=== PATIENT | male | born 1950 | race Caucasian/White ===

== ENCOUNTER 2019-08-19 13:51 | Inpatient (IN) | payer MEDICARE ==
[2019-08-19] MEDS ORDERED: Iopamidol-370 76% 500 ML 1 ML ONE (14:40)
--- NOTE | 2019-08-19 15:40 | RAD ---
ABDOMEN TWO VIEWS: HISTORY: Absent bowel movement x5 days. COMPARISON: None. FINDINGS: No evidence of pneumoperitoneum on the upright projection. Multiple markedly distended loops of small bowel. Paucity of gas in the colon. IMPRESSION: High-grade small bowel obstruction. Transcribed Date/Time: 08/19/2019 5:06 PM
[2019-08-19 16:33] LABS: Hemoglobin 15.7 g/dL (14.0-18.0); Mean Corpuscular HGB CONC 34.3 g/dL (32.0-36.0); Mean Corpuscular Hemoglobin 31.8 pg (27.0-31.0); Mean Corpuscular Volume 92.9 fL (78.0-98.0); Mean Platelet Volume 7.8 fL (7.4-10.4); Platelet Count 241 thou/uL (130-400); RBC Distribution Width 11.3 % (11.5-14.5); Red Blood Cell (RBC) Count 4.93 mill/uL (4.70-6.10); White Blood Cell (WBC) Count 12.7 thou/uL (4.8-10.8)
[2019-08-19 16:50] LABS: Band 23 % (5-11); Eosinophils 1 % (0-10); Lymphocytes 1 % (21-51); MDiff Complete? YES; Monocytes 9 % (0-10); Neutrophil 63 % (42-75); Platelet Morphology Comment Appears Adequate; Polychromasia SLIGHT = 2-3 cells (100X) (0-2/hpf); Reactive Lymphocytes 3 % (0-10)
[2019-08-19 16:59] LABS: Albumin 3.5 g/dL (3.4-4.8)
[2019-08-19 17:00] LABS: Chloride 94 mmol/L (98-107); Sodium 130 mmol/L (136-145)
[2019-08-19 17:01] LABS: Calcium 9.1 mg/dL (7.8-10.44); Glucose 99 mg/dL (80-115)
[2019-08-19 17:02] LABS: AST (SGOT) 19 U/L (5-34); Bilirubin, Total 1.4 mg/dL (0.2-1.2); Globulin 3.6 g/dL (2.4-3.5); Protein, Total 7.1 g/dL (5.8-8.1)
[2019-08-19 17:03] LABS: Anion Gap 21 mmol/L (10-20); Carbon Dioxide 19 mmol/L (23-31)
[2019-08-19 17:04] LABS: Alkaline Phosphatase 86 U/L (40-110)
[2019-08-19 17:05] LABS: Calc. Creatinine Clearance 0 mL/min (70-130); Estimated GFR-MDRD 83
[2019-08-19 17:06] LABS: BUN (Urea Nitrogen) 55 mg/dL (8.4-25.7)
[2019-08-19 17:07] LABS: ALT (SGPT) 12 U/L (8-55)
[2019-08-19 17:08] LABS: Lipase 39 U/L (8-78)
[2019-08-19] MEDS ORDERED: Morphine 4 MG/ML VIAL ONE (17:55)
[2019-08-19] MEDS ORDERED: Ondansetron PF 4 MG/2 ML Vial ONE (17:56)
[2019-08-19 18:16] LABS: Bacteria/HPF None Seen HPF (None Seen); Bilirubin Negative (Negative); Blood, Urine Negative (Negative); Clarity Clear (Clear); Glucose, Urine (Dipstick) Normal (Negative); Leukocyte Negative Leu/uL (Negative); Nitrite Negative (Negative); Protein, Urine (Dipstick) 30 mg/dL (Neg-Trace); RBC/HPF 0-3 HPF (0-3); Squamous Epithelial 0-3 HPF (0-3); Urobilinogen Normal mg/dL (Less than 2); WBC/HPF 0-3 HPF (0-3)
[2019-08-19] MEDS ORDERED: Ondansetron PF 4 MG/2 ML Vial IVP PRN (18:17)
[2019-08-19] MEDS ORDERED: hydrALAZINE 20 MG/ML VIAL SLOW IVP PRN (18:17)
--- NOTE | 2019-08-19 19:21 | RAD ---
ONE VIEW ABDOMEN: History: NT tube placement. Comparison: None. FINDINGS: Nasogastric tube termites in the left upper quadrant. Multiple distended air filled loops of small shahrzad wel are noted. IMPRESSION: Nasogastric tube as above. POS: PPP
[2019-08-19 20:16] VITALS: BMI 21.7
--- NOTE | 2019-08-19 20:24 | CT ---
ABDOMEN CT WITH CONTRAST PELVIC CT WITH CONTRAST: History: High grade small bowel obstruction. Lack of bowel movement for five days. FINDINGS: ABDOMEN CT: Chronic changes in the lung bases. Normal heart size. No significant pericardial fluid. The descendin g thoracic aorta and abdominal aorta have a normal caliber. There is atherosclerosis without evidence of periaortic fat stranding. Portal vein is patent. Gallbladder is unremarkable. The liver, spleen, pancreas, and adrenal glands have appropriate attenuation and enhancement. There is symmetric enhancement of the kidneys. Bilaterally, no obstructive uropathy. No gastrohepatic, retrocrural or periportal lymphadenopathy. Decreased visceral fat limits evaluation for inflammatory change. No mesenteric mass, lymphadenopathy , free air or free fluid. Limited evaluation of the alimentary canal by the absence of oral contrast. There are multiple markedly distended fluid filled loops of jejunum. Transition segment appears to be in the midabdomen (axial image 56, series 2 and coronal image 72, series 601). The distal ileal loop s are decompressed. Ileocecal junction is unremarkable. The appendix appears to be distended with fec al material and air, as well as debris within it. Based on the coronal images, the appendix measures 1 cm at its base. There may be an appendicolith at the base of the appendix. Scattered material in a nondistended, nondilated colon. There is mucosal thickening of the left hemicolon due to inadeq uate distention. There is evidence of descending colon and sigmoid colon diverticulosis, without evid ence of diverticulitis. PELVIC CT: Urinary bladder is grossly unremarkable. No pelvis mass, lymphadenopathy, free air or free fluid. Mil dly prominent prostate gland. There are no lytic or blastic lesions within the osseous structures. IMPRESSION: 1. High grade small bowel obstruction which appears to have a transition point in the midline of the lower abdomen. 2. Questionable prominent appendix with components of fluid and debris. Though there is still air in the appendix, appendicitis cannot be entirely excluded. Given what appears to be a possible appendico lith at the base of the appendix. The appendix measures approximately 1 cm proximally. 3. Extensive diverticulosis in the left hemicolon, without evidence of diverticulitis. 4. The results of study discussed with Alba Cleveland, 08-19-2019 at 6:59 p.m. Code CR POS: PPP
[2019-08-19] MEDS: Sodium Chloride 0.9% 1,000 ML IV SCH (21:14)
[2019-08-19] MEDS: Famotidine/PF 20 mg/2ml Vial SLOW IVP SCH (21:15)
[2019-08-19] MEDS: Enoxaparin Sodium 40 MG/0.4 ML SYRINGE SC SCH (21:17)
[2019-08-19] MEDS ORDERED: Mometasone/Formoterol 120 PUFF INHALER INH SCH (23:15)
[2019-08-19] MEDS: Morphine 2 MG/ML SYRINGE SLOW IVP PRN (23:34)
[2019-08-20] MEDS: Sodium Chloride 0.9% 1,000 ML IV SCH ×4 (02:46→23:02)
[2019-08-20] MEDS: Morphine 2 MG/ML SYRINGE SLOW IVP PRN ×3 (02:47→09:13)
[2019-08-20 05:11] LABS: #Eosinphils 0.1 thou/uL (0.0-0.7); #Lymphocytes 0.7 thou/uL (1.20-3.40); #Monocytes 1.4 thou/uL (0.11-0.59); #Neutrophils 10.1 thou/uL (1.40-6.50); %Basophils 0.1 % (0.0-1.0); %Eosinophils 0.5 % (0.0-10.0); %Lymphocytes 5.6 % (21.0-51.0); %Monocytes 11.1 % (0.0-10.0); %Neutrophils 82.6 % (42.0-75.0); Hemoglobin 12.8 g/dL (14.0-18.0); Mean Corpuscular HGB CONC 31.8 g/dL (32.0-36.0); Mean Corpuscular Hemoglobin 29.7 pg (27.0-31.0); Mean Corpuscular Volume 93.4 fL (78.0-98.0); Mean Platelet Volume 7.5 fL (7.4-10.4); Platelet Count 273 thou/uL (130-400); RBC Distribution Width 11.1 % (11.5-14.5); Red Blood Cell (RBC) Count 4.31 mill/uL (4.70-6.10); White Blood Cell (WBC) Count 12.3 thou/uL (4.8-10.8)
[2019-08-20 05:37] LABS: ALT (SGPT) 11 U/L (8-55); AST (SGOT) 18 U/L (5-34); Albumin 2.8 g/dL (3.4-4.8); Alkaline Phosphatase 78 U/L (40-110); Anion Gap 9 mmol/L (10-20); BUN (Urea Nitrogen) 31 mg/dL (8.4-25.7); Bilirubin, Total 1.4 mg/dL (0.2-1.2); Calc. Creatinine Clearance 89 mL/min (70-130); Calcium 7.9 mg/dL (7.8-10.44); Carbon Dioxide 26 mmol/L (23-31); Chloride 97 mmol/L (98-107); Estimated GFR-MDRD Greater than 90; Globulin 2.7 g/dL (2.4-3.5); Glucose 81 mg/dL (80-115); Potassium 3.5 mmol/L (3.5-5.1); Protein, Total 5.5 g/dL (5.8-8.1); Sodium 128 mmol/L (136-145)
[2019-08-20] MEDS ORDERED: Mometasone/Formoterol 120 PUFF INHALER INH SCH (06:30)
[2019-08-20] MEDS ORDERED: Meropenem 2 GM in Sodium Chloride 0.9% 100 ML IVPB SCH (07:30)
--- NOTE | 2019-08-20 07:57 | HP ---
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 He reports having had a colonoscopy 2 years ago at [facility]. He states it was completely clean. He has been evaluated today and noted to have abdominal distention. Plain abdominal x-ray suggested a bowel obstruction, although he has had no abdominal surgeries. CAT scan of the abdomen and pelvis reveals stool in his sigmoid colon, right colon, and distended small bowel loops. Review of his colonoscopy, Dr. Granado in 2016 reveals biopsies, ascending and transverse colon hyperplastic polyp. Otherwise, no significant findings. ALLERGIES: NONE. SOCIAL HISTORY: Tobacco, one half pack per day. Alcohol, rarely. MEDICATIONS: Inhalers, which he has not taken in some time. Otherwise, no medications. PAST SURGICAL HISTORY: Noncontributory. REVIEW OF SYSTEMS: Ten-point noncontributory. PHYSICAL EXAMINATION: VITAL SIGNS: 81, respiratory rate 16, and 120/60. HEAD, EARS, EYES, NOSE, AND THROAT: Unremarkable. LUNGS: Clear to auscultation. CARDIAC: Regular rate and rhythm without murmur or gallop. ABDOMEN: Soft, distended, and tympanitic. No peritoneal signs. Bowel sounds present. LABORATORY DATA: White count 12 and hemoglobin 15. Sodium 130, potassium 4, and carbon dioxide 19. CAT scan as above. ASSESSMENT AND PLAN: Abdominal distention of uncertain etiology. Await formal CAT scan reading. Place an NG tube. Resuscitate with IV fluids. Observe. Repeat abdominal x-rays in the morning. Further recommendations based on clinical course. Job ID: [id number]
--- NOTE | 2019-08-20 08:59 | PRG ---
DATE OF SERVICE: 08/20/2019 SUBJECTIVE: Jatin Munoz has not had any bowel movements or passed gas overnight. Temperature 98 degrees, heart rate 77, blood pressure 122/73. NG tube output is more than 300 overnight. White count is 12, hemoglobin 12 this morning. Sodium 128, potassium 3.5. BUN and creatinine are essentially normal. BUN improved from 55 to 31 this morning. Creatinine is normal at 0.71. Bilirubin is 1.4. OBJECTIVE: LUNGS: Clear to auscultation. No wheezing. CARDIAC: Regular rate and rhythm without murmur or gallop. ABDOMEN: Soft, quiet, distended, tympanitic. No guarding. LABORATORY DATA: Abdominal x-rays from this morning, 2-view, pending. ASSESSMENT AND PLAN: Small bowel obstruction. We would plan exploratory laparotomy for bowel obstruction in this patient, who has not had abdominal operations in the past. CAT scan is definitive for transition zone. He has had a colonoscopy in the last 2 years. He understands risks and benefits and consents. Job ID: [id number]
[2019-08-20] MEDS ORDERED: FLU VACC TS2019-20(65YR UP)/PF 180 MCG/0.5 ML SYRINGE IM ONE (09:00)
[2019-08-20] MEDS ORDERED: Prevnar 13-Val Conj/PF 0.5 ML SYRINGE IM ONE (09:00)
[2019-08-20] MEDS: Famotidine/PF 20 mg/2ml Vial SLOW IVP SCH ×2 (09:13→23:00)
[2019-08-20] MEDS: Morphine 4 MG/ML VIAL SLOW IVP PRN ×2 (11:13→15:34)
--- NOTE | 2019-08-20 11:55 | RAD ---
Acute abdominal series INDICATION: Small bowel obstruction follow-up COMPARISON: KUB dated 08/19/2019 FINDINGS: CHEST: LUNGS: There is mild right basilar atelectasis Cardiomediastinal silhouette: Normal. Pleural effusion or pneumothorax: There is a new small right and tiny left pleural effusion. Pneumoperitoneum: Negative. ABDOMEN: Bowel gas pattern: There is a gastric catheter projecting the region of the gastric cardia. There are dilated loops of small bowel within the central abdomen. There is minimal gas within the colon and rectum. Abnormal calcifications: There are scattered vascular calcifications within the abdomen and pelvis Osseous structures: No acute osseous abnormality is demonstrated. Additional findings: None. IMPRESSION: 1. Stable moderate to severe partial small bowel obstruction. 2. New small right and tiny left pleural effusion with mild right basilar atelectasis. 3. Gastric catheter
[2019-08-20] MEDS ORDERED: PROVENTIL INHALER 6.7 G (200 INHALATIONS) INH PRN (12:54)
[2019-08-20] MEDS ORDERED: Glycopyrrolate 0.2 MG/ML 5 ML SYRINGE ONE (13:06)
[2019-08-20] MEDS ORDERED: Rocuronium Bromide 10 MG/ML (10ML VIAL) ONE (13:06)
[2019-08-20] MEDS ORDERED: ePHEDrine/0.9% NaCl/PF SYRINGE 50 mg/10 ml ONE (13:06)
[2019-08-20] MEDS ORDERED: Lidocaine 1% PF 5 ML VIAL ONE (13:06)
[2019-08-20] MEDS ORDERED: PHENYLEPHRINE-NS 100 MCG/ML 10 ML SYRINGE ONE (13:06)
[2019-08-20] MEDS ORDERED: Dexamethasone 20 MG/5 ML VIAL ONE (13:06)
[2019-08-20] MEDS ORDERED: Succinylcholine Chloride 20 MG/ML 10 ml SYRINGE FS ONE (13:06)
[2019-08-20] MEDS ORDERED: Ondansetron PF 4 MG/2 ML Vial ONE (13:06)
[2019-08-20] MEDS ORDERED: PROPOFOL 200 MG/20 ML VIAL ONE (13:06)
[2019-08-20] MEDS: Ipratropium Bromide 2.5 ml Neb NEB SCH ×2 (18:33→23:50)
[2019-08-20] MEDS: Mometasone/Formoterol 120 PUFF INHALER INH SCH (18:43)
[2019-08-20] MEDS ORDERED: Fentanyl 100 MCG/2 ML VIAL ONE ×2 (20:03→21:37)
[2019-08-20] MEDS ORDERED: HYDROmorphone 0.5 MG/0.5 ML SYRINGE ONE ×2 (20:03→21:49)
[2019-08-20] MEDS ORDERED: Ondansetron HCl/PF 4 MG/2 ML Vial IVP PRN (20:07)
[2019-08-20] MEDS ORDERED: HYDROmorphone 2 MG/ML VIAL SLOW IVP PRN (20:45)
[2019-08-20] MEDS ORDERED: Promethazine HCl 25 MG/ML VIAL SLOW IVP PRN (20:45)
[2019-08-20] MEDS ORDERED: diphenhydrAMINE 50 MG/ML VIAL IM PRN (21:19)
[2019-08-20] MEDS ORDERED: diphenhydrAMINE 25 MG CAP PO PRN (21:19)
[2019-08-20] MEDS ORDERED: diphenhydrAMINE 50 MG/ML VIAL IVP PRN (21:19)
[2019-08-20] MEDS ORDERED: Zolpidem Tartrate 5 MG TAB PO PRN (21:19)
[2019-08-20] MEDS ORDERED: Promethazine HCl 25 MG/ML VIAL IM PRN (21:19)
[2019-08-20] MEDS ORDERED: Ketorolac Tromethamine 30 MG/ML VIAL IVP PRN (21:19)
[2019-08-20] MEDS ORDERED: Naloxone HCl 0.4 mg/ml Vial IV PRN (21:19)
[2019-08-20] MEDS ORDERED: Communication Order-Pharmacy FS SCH (21:30)
[2019-08-20] MEDS ORDERED: HYDROmorphone 2 MG/ML VIAL ONE (21:48)
[2019-08-20] MEDS: Enoxaparin Sodium 40 MG/0.4 ML SYRINGE SC SCH (23:00)
[2019-08-20] MEDS: NS 0.9% w/ 20 MEQ KCL 1,000 ML IV SCH (23:16)
[2019-08-20] MEDS: Piperacillin/Tazobactam 4.5 GM in Sodium Chloride 0.9% 100 ML IVPB SCH (23:17)
[2019-08-20] MEDS: Ketorolac Tromethamine 30 MG/ML VIAL IVP SCH (23:17)
--- NOTE | 2019-08-21 03:43 | OP ---
DATE OF PROCEDURE: 08/20/2019 PREOPERATIVE DIAGNOSIS: Small bowel obstruction. POSTOPERATIVE DIAGNOSES: Ruptured appendicitis with interloop abdominal abscess and a small bowel obstruction and umbilical hernia. PROCEDURES PERFORMED: Laparotomy, drainage of intraabdominal abscess, lysis of adhesions secondary to adhesions from ruptured appendicitis and abscess, appendectomy, abdominal washout, #19 Gold JAKE drain. INDICATIONS: The patient presented with acute onset of abdominal pain and distention for 2 to 3 days. He did not give any history of appendicitis. CAT scan did not reveal the abscess, but revealed a bowel obstruction with a transition zone. Findings at operation were as above. DESCRIPTION OF PROCEDURE: The patient was taken to the operating room, where under general anesthesia, abdomen was clipped of hair, prepared with ChloraPrep and draped in routine fashion. March catheter in place and left in place postoperatively. Midline incision was made, centered about the umbilicus, carried down to the skin and subcutaneous tissue. There was purulent material in the pelvis. One small bowel loops were taken down. There was an intraabdominal abscess with a ruptured appendicitis. Small bowel was freed and inflammatory oozing near the abscess. Small bowel was run from the ligament of Treitz to the cecum. Small bowel contents evacuated retrograde through the NG tube. Appendectomy undertaken dividing the mesoappendix with the LigaSure and dividing the appendiceal base at the cecum with a DENAE blue load stapler. Stapled cecal stump was hemostatic and secured. Appendix submitted to Pathology. Abdominal cavity irrigated with 3 L of saline solution, #19 Gold JAKE drain placed to the right lateral abdominal incision secured with 3-0 nylon suture. OpSite and Mastisol applied. Drain placed in the pelvis in anterior loops. The patient tolerated the procedure well. Irrigant evacuated. Midline fascia closed with continuous suture of #1 PDS. Skin and subcutaneous tissues closed loosely with sruthi and left open otherwise for wound VAC application tomorrow. The patient tolerated the procedure well. NG tube left in place as well as March. Job ID: [id number]
[2019-08-21 05:29] LABS: #Basophils 0.1 thou/uL (0.0-0.2); #Lymphocytes 0.2 thou/uL (1.20-3.40); #Monocytes 0.5 thou/uL (0.11-0.59); #Neutrophils 10.2 thou/uL (1.40-6.50); %Basophils 0.6 % (0.0-1.0); %Eosinophils 0.1 % (0.0-10.0); %Lymphocytes 1.8 % (21.0-51.0); %Monocytes 4.8 % (0.0-10.0); %Neutrophils 92.7 % (42.0-75.0); Hemoglobin 13.1 g/dL (14.0-18.0); Mean Corpuscular HGB CONC 31.3 g/dL (32.0-36.0); Mean Corpuscular Hemoglobin 29.6 pg (27.0-31.0); Mean Corpuscular Volume 94.7 fL (78.0-98.0); Mean Platelet Volume 7.3 fL (7.4-10.4); Platelet Count 292 thou/uL (130-400); RBC Distribution Width 11.4 % (11.5-14.5); Red Blood Cell (RBC) Count 4.41 mill/uL (4.70-6.10)
[2019-08-21] MEDS: Piperacillin/Tazobactam 4.5 GM in Sodium Chloride 0.9% 100 ML IVPB SCH ×4 (05:45→23:48)
[2019-08-21] MEDS: Ketorolac Tromethamine 30 MG/ML VIAL IVP SCH ×4 (05:46→23:48)
[2019-08-21] MEDS: NS 0.9% w/ 20 MEQ KCL 1,000 ML IV SCH ×3 (05:46→21:14)
[2019-08-21 05:52] LABS: ALT (SGPT) 9 U/L (8-55); AST (SGOT) 18 U/L (5-34); Albumin 2.4 g/dL (3.4-4.8); Alkaline Phosphatase 62 U/L (40-110); Anion Gap 13 mmol/L (10-20); BUN (Urea Nitrogen) 26 mg/dL (8.4-25.7); Bilirubin, Total 2.2 mg/dL (0.2-1.2); Calc. Creatinine Clearance 88 mL/min (70-130); Calcium 7.6 mg/dL (7.8-10.44); Carbon Dioxide 19 mmol/L (23-31); Chloride 109 mmol/L (98-107); Estimated GFR-MDRD Greater than 90; Globulin 2.5 g/dL (2.4-3.5); Glucose 105 mg/dL (80-115); Potassium 4.4 mmol/L (3.5-5.1); Protein, Total 4.9 g/dL (5.8-8.1); Sodium 137 mmol/L (136-145)
[2019-08-21] MEDS ORDERED: Lactated Ringer's 1,000 ML IV SCH (06:45)
[2019-08-21] MEDS: Mometasone/Formoterol 120 PUFF INHALER INH SCH ×2 (07:01→19:01)
[2019-08-21] MEDS: Ipratropium Bromide 2.5 ml Neb NEB SCH ×4 (07:03→23:54)
[2019-08-21] MEDS: Pantoprazole 40 MG VIAL IVP SCH (08:25)
[2019-08-21] MEDS: Famotidine/PF 20 mg/2ml Vial SLOW IVP SCH ×2 (08:25→21:17)
--- NOTE | 2019-08-21 19:47 | PRG ---
DATE OF SERVICE: 08/21/2019 SUBJECTIVE: Mr. Munoz is doing well today, feels somewhat better. His belly pain has much improved. He was informed of intraoperative findings. Temperature 97.5 degrees, heart rate 66, blood pressure 98/63. It was explained to him why he cannot eat regular food now. His NG tube has put out 1700 mL postop, JAKE drain persistent serosanguineous drainage 260 postop, urine output slightly low at 350 postop. White count this morning is 11, hemoglobin 13. BUN 26, creatinine 0.7, sodium 137. OBJECTIVE: LUNGS: Clear to auscultation. CARDIAC: Regular rate and rhythm without murmur or gallop. ABDOMEN: Soft postoperative tenderness. Decreased bowel sounds. ASSESSMENT AND PLAN: Doing well. Continue NG tube suction. Await ileus resolution from intraabdominal abscess and ruptured appendicitis resulting in bowel obstruction. Increase activity. His bilirubin was up to 2.2, repeat tomorrow. Probably, this is a result of his intraabdominal infection and hopefully this should resolve with time. Job ID: [id number]
[2019-08-21] MEDS: Enoxaparin Sodium 40 MG/0.4 ML SYRINGE SC SCH (21:16)
[2019-08-22] MEDS: NS 0.9% w/ 20 MEQ KCL 1,000 ML IV SCH ×3 (01:10→14:15)
[2019-08-22] MEDS: Ketorolac Tromethamine 30 MG/ML VIAL IVP SCH ×4 (05:31→23:18)
[2019-08-22] MEDS: Piperacillin/Tazobactam 4.5 GM in Sodium Chloride 0.9% 100 ML IVPB SCH ×4 (05:39→23:19)
[2019-08-22 06:07] LABS: ALT (SGPT) 12 U/L (8-55); AST (SGOT) 26 U/L (5-34); Albumin 2.4 g/dL (3.4-4.8); Alkaline Phosphatase 82 U/L (40-110); Anion Gap 13 mmol/L (10-20); BUN (Urea Nitrogen) 32 mg/dL (8.4-25.7); Calc. Creatinine Clearance 89 mL/min (70-130); Carbon Dioxide 18 mmol/L (23-31); Chloride 113 mmol/L (98-107); Estimated GFR-MDRD Greater than 90; Globulin 2.9 g/dL (2.4-3.5); Glucose 105 mg/dL (80-115); Potassium 4.9 mmol/L (3.5-5.1); Protein, Total 5.3 g/dL (5.8-8.1); Sodium 139 mmol/L (136-145)
[2019-08-22 06:08] LABS: Band 11 % (5-11); Hemoglobin 13.6 g/dL (14.0-18.0); Lymphocytes 5 % (21-51); MDiff Complete? YES; Mean Corpuscular HGB CONC 31.4 g/dL (32.0-36.0); Mean Corpuscular Hemoglobin 31.1 pg (27.0-31.0); Mean Corpuscular Volume 98.9 fL (78.0-98.0); Mean Platelet Volume 8.7 fL (7.4-10.4); Monocytes 5 % (0-10); Neutrophil 79 % (42-75); Platelet Clumps SLIGHT; Platelet Count 207 thou/uL (130-400); Platelet Morphology Comment Appears Adequate; RBC Distribution Width 11.8 % (11.5-14.5); Red Blood Cell (RBC) Count 4.36 mill/uL (4.70-6.10); White Blood Cell (WBC) Count 11.9 thou/uL (4.8-10.8)
[2019-08-22] MEDS: fentaNYL Citrate/PF 2,000 MCG in Sodium Chloride 0.9% 60 ML IV PRN (07:44)
[2019-08-22] MEDS: Pantoprazole 40 MG VIAL IVP SCH (07:50)
[2019-08-22] MEDS: Famotidine/PF 20 mg/2ml Vial SLOW IVP SCH ×2 (07:50→21:03)
[2019-08-22] MEDS: Ipratropium Bromide 2.5 ml Neb NEB SCH ×3 (08:50→19:08)
[2019-08-22] MEDS: Mometasone/Formoterol 120 PUFF INHALER INH SCH ×2 (08:50→19:13)
[2019-08-22] MEDS ORDERED: Lactated Ringer's 1,000 ML IV SCH (14:45)
[2019-08-22] MEDS: Sodium Chloride 0.45% 1,000 ML IV SCH ×2 (18:49→21:04)
--- NOTE | 2019-08-22 19:15 | PRG ---
DATE OF SERVICE: 08/22/2019 SUBJECTIVE: The patient is 2 days status post exploratory laparotomy for bowel obstruction, finding perforated appendicitis with abscess and adhesions from the appendicitis with resulting bowel obstruction. Pathology has returned and reveals appendicitis with perforation. OBJECTIVE: Temperature 97.9 degrees, heart rate 64, blood pressure 154/79. The patient is taking copious sips and chips. Gastric drainage is 2950 in the last 24 hours. Today so far, 800. Urine output 225. March removed this morning. He did not urinate for a while, but on ambulating, he urinated on the floor in the hallways requiring 3 towels to clean up. March output in the last 24 hours is 1150. LABORATORY DATA: White count 11, hemoglobin 13.6. Chloride 113, BUN 32, creatinine 0.71. ASSESSMENT AND PLAN: 1. Ileus after laparotomy for intraperitoneal abscess drainage and appendectomy. Copious NG tube output. Continue NG tube for now. The patient's urine output is adequate. Needs to be adequately hydrated. Thus, we will decrease his IV fluids to 100 an hour. Continue intravenous antibiotics. Continue PULPER TENDER. Change his IV fluids to LR as his hyponatremia seems to be markedly improved. 2. Mild chronic kidney disease with acute kidney injury, improved with hydration. Continue PULPER TENDER. Job ID: [id number]
[2019-08-22] MEDS: Enoxaparin Sodium 40 MG/0.4 ML SYRINGE SC SCH (21:03)
[2019-08-23] MEDS: Ipratropium Bromide 2.5 ml Neb NEB SCH ×4 (00:23→19:14)
[2019-08-23 05:22] LABS: #Eosinphils 0.2 thou/uL (0.0-0.7); #Lymphocytes 1.1 thou/uL (1.20-3.40); #Monocytes 0.8 thou/uL (0.11-0.59); #Neutrophils 7.7 thou/uL (1.40-6.50); %Basophils 0.1 % (0.0-1.0); %Eosinophils 1.8 % (0.0-10.0); %Lymphocytes 11.1 % (21.0-51.0); Hemoglobin 11.7 g/dL (14.0-18.0); Mean Corpuscular HGB CONC 32.3 g/dL (32.0-36.0); Mean Corpuscular Hemoglobin 30.4 pg (27.0-31.0); Mean Corpuscular Volume 94.1 fL (78.0-98.0); Mean Platelet Volume 7.1 fL (7.4-10.4); Platelet Count 350 thou/uL (130-400); RBC Distribution Width 11.5 % (11.5-14.5); Red Blood Cell (RBC) Count 3.84 mill/uL (4.70-6.10); White Blood Cell (WBC) Count 9.8 thou/uL (4.8-10.8)
[2019-08-23 05:36] LABS: ALT (SGPT) 13 U/L (8-55); AST (SGOT) 20 U/L (5-34); Albumin 2.2 g/dL (3.4-4.8); Alkaline Phosphatase 59 U/L (40-110); Anion Gap 9 mmol/L (10-20); BUN (Urea Nitrogen) 30 mg/dL (8.4-25.7); Bilirubin, Total 1.5 mg/dL (0.2-1.2); Calc. Creatinine Clearance 94 mL/min (70-130); Calcium 7.6 mg/dL (7.8-10.44); Carbon Dioxide 21 mmol/L (23-31); Chloride 111 mmol/L (98-107); Estimated GFR-MDRD Greater than 90; Globulin 2.5 g/dL (2.4-3.5); Glucose 85 mg/dL (80-115); Potassium 3.8 mmol/L (3.5-5.1); Protein, Total 4.7 g/dL (5.8-8.1); Sodium 137 mmol/L (136-145)
[2019-08-23] MEDS: Piperacillin/Tazobactam 4.5 GM in Sodium Chloride 0.9% 100 ML IVPB SCH ×3 (06:41→18:30)
[2019-08-23] MEDS: Ketorolac Tromethamine 30 MG/ML VIAL IVP SCH ×3 (06:41→18:32)
[2019-08-23] MEDS: Mometasone/Formoterol 120 PUFF INHALER INH SCH ×2 (07:10→19:16)
[2019-08-23] MEDS: Famotidine/PF 20 mg/2ml Vial SLOW IVP SCH ×2 (08:22→21:17)
[2019-08-23] MEDS: Pantoprazole 40 MG VIAL IVP SCH (08:22)
[2019-08-23] MEDS ORDERED: Prevnar 13-Val Conj/PF 0.5 ML SYRINGE IM ONE (12:30)
[2019-08-23] MEDS: Sodium Chloride 0.45% 1,000 ML IV SCH (18:32)
--- NOTE | 2019-08-23 20:19 | PRG ---
DATE OF SERVICE: 08/23/2019 SUBJECTIVE: Mr. Munoz is doing well today. He reports passing flatus. He feels much better. Abdomen feels better and softer. Temperature 98.1 degrees, pulse 66, blood pressure 133/77. NG tube output in the last 24 hours is 1200 mL down from 2950 yesterday. His output today has diminished. JAKE drain 290, serosanguineous. The patient is urinating without difficulty. White count 9 and hemoglobin 11.7. Basic metabolic profile unremarkable. Bilirubin has fallen to 1.5. This is a result of his peritonitis, liver function changes. OBJECTIVE: LUNGS: Clear to auscultation. No wheezing. CARDIAC: Regular rate and rhythm without murmur or gallop. ABDOMEN: Soft. Occasional bowel sounds. Wound VAC in place. EXTREMITIES: Unremarkable. ASSESSMENT AND PLAN: Ileus. It appears it is improving, possibly resolving. We will continue NG tube suction today. I have told him he may be able to have his NG tube out in the next 24 to 48 hours, pending clinical course, depending on what Dr. Olsen thinks who is covering over the weekend. Dr. Washburn is covering next week on Monday, Monday, and Monday. The patient is ambulating and urinating without difficulty. Continue intravenous antibiotics. Await GI function. Job ID: [id number]
[2019-08-23] MEDS: Enoxaparin Sodium 40 MG/0.4 ML SYRINGE SC SCH (21:17)
[2019-08-23] MEDS: fentaNYL Citrate/PF 2,000 MCG in Sodium Chloride 0.9% 60 ML IV PRN (21:18)
[2019-08-23] MEDS: Lactated Ringer's 1,000 ML IV SCH (21:18)
[2019-08-24] MEDS: Ketorolac Tromethamine 30 MG/ML VIAL IVP SCH ×4 (00:29→17:54)
[2019-08-24] MEDS: Piperacillin/Tazobactam 4.5 GM in Sodium Chloride 0.9% 100 ML IVPB SCH ×4 (00:29→17:55)
[2019-08-24] MEDS: Ipratropium Bromide 2.5 ml Neb NEB SCH ×4 (00:32→20:31)
[2019-08-24] MEDS: Lactated Ringer's 1,000 ML IV SCH ×2 (06:07→17:55)
[2019-08-24] MEDS: Mometasone/Formoterol 120 PUFF INHALER INH SCH ×2 (06:59→20:32)
[2019-08-24] MEDS: Famotidine/PF 20 mg/2ml Vial SLOW IVP SCH ×2 (09:15→21:14)
[2019-08-24] MEDS: Pantoprazole 40 MG VIAL IVP SCH (09:16)
--- NOTE | 2019-08-24 16:54 | PRG ---
DATE OF SERVICE: 08/24/2019 SUBJECTIVE: The patient is currently on the surgical floor. He is status post laparotomy, drainage of intra-abdominal abscess, lysis of adhesions secondary to adhesions from ruptured appendicitis and abscess, appendectomy, abdominal washout, JAKE drain placement. He is postoperative day 4 from this procedure. He did have postop ileus that appears to be slowly resolving. We were able to clamp his NG tube this morning, and at the time of this dictation, he had 0 residuals. Nurses report that he is comfortable and he is started passing gas. The patient denies any pain at this time. PHYSICAL EXAMINATION: VITAL SIGNS: Temperature is 97.5, heart rate 64, blood pressure 116/66, respirations 18, and oxygen saturation is 95% on room air. GENERAL: The patient is resting comfortably in bed. He is sitting in a chair at bedside. He appears comfortable. He is awake and conversant. LUNGS: Clear to auscultation bilaterally. HEART: Regular rate and rhythm. ABDOMEN: Soft and slightly distended with no peritoneal signs. EXTREMITIES: Neurovascularly intact x4. LABORATORY DATA: There are no labs or radiographs to review this morning. ASSESSMENT AND PLAN: Status post exploratory laparotomy with postoperative ileus. Plan will be to continue clamping nasogastric suction and check residuals at 4 hours. The patient is allowed to have ice chips. We encouraged him to be out of bed and ambulating. The patient does well overnight. We will likely be able to discontinue his NG tube and begin advancing his diet. We will continue his antibiotics per Dr. Gauthier's original plan. The patient was evaluated this morning with Dr. Olsen during rounds. Job ID: [id number]
[2019-08-24] MEDS: Enoxaparin Sodium 40 MG/0.4 ML SYRINGE SC SCH (21:15)
[2019-08-25] MEDS: Ketorolac Tromethamine 30 MG/ML VIAL IVP SCH ×2 (00:09→05:46)
[2019-08-25] MEDS: Piperacillin/Tazobactam 4.5 GM in Sodium Chloride 0.9% 100 ML IVPB SCH ×5 (00:10→23:32)
[2019-08-25] MEDS: Ipratropium Bromide 2.5 ml Neb NEB SCH ×4 (00:32→19:24)
[2019-08-25] MEDS: fentaNYL Citrate/PF 2,000 MCG in Sodium Chloride 0.9% 60 ML IV PRN (01:32)
[2019-08-25] MEDS: Lactated Ringer's 1,000 ML IV SCH (05:55)
[2019-08-25] MEDS: Mometasone/Formoterol 120 PUFF INHALER INH SCH ×2 (06:53→19:25)
[2019-08-25] MEDS: Pantoprazole 40 MG VIAL IVP SCH (08:15)
[2019-08-25] MEDS: Famotidine/PF 20 mg/2ml Vial SLOW IVP SCH ×2 (08:15→20:55)
[2019-08-25] MEDS ORDERED: Ibuprofen 600 MG TAB PO SCH (09:45)
[2019-08-25] MEDS: Acetaminophen 500 MG TAB PO SCH ×3 (10:40→20:54)
[2019-08-25] MEDS: traMADol HCl 50 MG TAB PO SCH ×3 (10:40→20:55)
--- NOTE | 2019-08-25 18:34 | PRG ---
DATE OF SERVICE: 08/25/2019 SUBJECTIVE: Mr. Munoz is a 68-year-old male coming for evaluation of abdominal pain. The patient sustained a small bowel obstruction. He underwent an exploratory laparotomy with a diagnosis of appendicitis rupture and abscess, postop day 5 today, seen yesterday. NG tube residual is around 40 mL every 4 hours. The patient developed no fever or shortness of breath. No pain to be reported. The patient passed some gas with no bowel yet. Currently, the patient sitting on the chair, comfortable with no acute respiratory distress. NG tube working, put our minimally. OBJECTIVE: VITAL SIGNS: Temperature 98, heart rate is 60, respiratory rate 16, O2 saturation 95% on room air, and blood pressure 108/68. ABDOMEN: Soft, nondistended. Bowel sounds hypoactive. LABORATORY: There are no laboratory to be reported. ASSESSMENT: Status post laparotomy, drainage of intraabdominal abscess, lysis of adhesions secondary to adhesions from ruptured appendicitis and abscess, appendectomy and abdominal washout. PLAN: Continue supportive care. An NG tube to be discontinued per Dr. Olsen. The patient will have clear liquid diet for today. Encouraged physical activity and walking continue. Initiate pain medication p.o. Continue DVT prophylaxis. The patient was seen and evaluated with Dr. Olsen on round this morning. Job ID: [id number]
[2019-08-25] MEDS: Enoxaparin Sodium 40 MG/0.4 ML SYRINGE SC SCH (20:55)
[2019-08-26] MEDS: Ipratropium Bromide 2.5 ml Neb NEB SCH ×5 (00:05→23:23)
[2019-08-26] MEDS: Ondansetron PF 4 MG/2 ML Vial IVP PRN ×2 (01:07→21:29)
[2019-08-26] MEDS: Acetaminophen 500 MG TAB PO SCH ×4 (03:30→21:32)
[2019-08-26] MEDS: traMADol HCl 50 MG TAB PO SCH ×4 (03:30→21:30)
[2019-08-26] MEDS: Ibuprofen 200 MG TAB PO SCH ×3 (05:45→21:33)
[2019-08-26] MEDS: Piperacillin/Tazobactam 4.5 GM in Sodium Chloride 0.9% 100 ML IVPB SCH ×2 (05:45→12:53)
[2019-08-26 05:58] LABS: Anion Gap 11 mmol/L (10-20); BUN (Urea Nitrogen) 8 mg/dL (8.4-25.7); Calc. Creatinine Clearance 107 mL/min (70-130); Calcium 7.3 mg/dL (7.8-10.44); Carbon Dioxide 24 mmol/L (23-31); Chloride 102 mmol/L (98-107); Estimated GFR-MDRD Greater than 90; Glucose 124 mg/dL (80-115); Potassium 3.1 mmol/L (3.5-5.1); Sodium 134 mmol/L (136-145)
[2019-08-26] MEDS: Mometasone/Formoterol 120 PUFF INHALER INH SCH ×2 (07:43→19:13)
[2019-08-26] MEDS: Famotidine/PF 20 mg/2ml Vial SLOW IVP SCH ×2 (08:48→21:33)
--- NOTE | 2019-08-26 11:25 | PDOC.GSPN ---
Surgery Progress Note: Subj - Subjective Narrative: Patient is a 68 YO M POD6 for exploratory laparotomy for ruptured appendicitis with abscess drainage, washout, lysis of adhesions. He is doing well. Reports passing flatus and reports 1 BM last night. He is currently on clear liquids x1 day and is tolerating diet without N/V. Denies abdominal pain, chest pain, shortness of breath. Patient is receiving duonebs, dulera, atrovent. O2 sat during hospitalization 94-95%. Denies home oxygen. Currently on albuterol inhaler PRN at home, was previously on 2-3 other inhalers but was unable to continue due to cost. Patient reports using incentive spirometry and was able to ambulate around the halls yesterday. Surgery Progress Note: Obj - Vital signs Vital signs: Vital Signs - Most Recent Temp Pulse Resp BP Pulse Ox 97.2 F L 77 16 99/62 95 08/26/19 07:00 08/26/19 07:45 08/26/19 07:45 08/26/19 07:00 08/26/19 07:45 - Physical Exam General: no distress, no pain Cardiovascular: regular rate and rhythm, no murmur Respiratory: clear to auscultation, other (no wheezes or rhonchi) Abdomen: soft, other (Non distended. No guarding or ridigity. JAKE drain with about 70ml of serosanguinous fluid. JAKE output in last 24 hours 190. Wound vac in place over laparotomy. No evidence of erythema/warmth/discharge.) Surgery Progress Note: Results - Labs Result Diagrams: 08/23/19 04:56 08/26/19 04:59 Lab results: Laboratory Results - last 24 hr 08/26/19 04:59 Sodium 134 L Potassium 3.1 L Chloride 102 Carbon Dioxide 24 Anion Gap 11 BUN 8 L Creatinine 0.59 L Estimated GFR (MDRD) Greater than 90 Glucose 124 H Calcium 7.3 L Surgery Progress Note: A/P - Plan Plan: Assessment: 68 YO M POD6 for exploratory laparotomy for ruptured appendicitis with abscess drainage, washout, lysis of adhesions. Patient tolerating clear liquid diet so far and reported 1 BM overnight. Afebrile overnight and vital signs stable. Plan: -Advance diet to full liquids. If patient able to tolerate full liquids, we can advance diet to GI soft -Potassium 3.1. Will replace potassium today. -Day 6 of Zosyn. Normal white count on 08/23/18. Will descalate antibiotics to cipro/flagyl for a total of 14 days of antibiotics. -Continue ambulation and incentive spirometry -JAKE output 190 in last 24 hours. Will continue to monitor output. D/c drain at discharge. -Patient with wound vac. May need home health and follow up with wound care as an outpatient. -Continue DVT PPX with lovenox Addendum - Physician - Physician Attestation Date/Time: 08/26/19 [id number] I personally performed or re-performed the physical examination and medical decision making. I have verified all student documentation or findings, including history, physical exam and/or medical decision making. Doing well Advance to fulls, change to oral abx Arrange home health or outpatient wound care
[2019-08-26] MEDS: metroNIDAZOLE 500 MG TAB PO SCH ×2 (15:07→21:32)
[2019-08-26] MEDS: Ciprofloxacin 500 MG TAB PO SCH (21:32)
[2019-08-26] MEDS: Enoxaparin Sodium 40 MG/0.4 ML SYRINGE SC SCH (21:32)
[2019-08-27] MEDS: traMADol HCl 50 MG TAB PO SCH ×3 (03:45→15:06)
[2019-08-27] MEDS: Acetaminophen 500 MG TAB PO SCH ×3 (03:45→15:06)
[2019-08-27] MEDS: Ibuprofen 200 MG TAB PO SCH ×2 (05:20→15:06)
[2019-08-27] MEDS: Ciprofloxacin 500 MG TAB PO SCH (05:20)
[2019-08-27] MEDS: Mometasone/Formoterol 120 PUFF INHALER INH SCH ×2 (06:47→18:26)
[2019-08-27] MEDS: Ipratropium Bromide 2.5 ml Neb NEB SCH ×3 (06:50→18:25)
[2019-08-27] MEDS: Famotidine/PF 20 mg/2ml Vial SLOW IVP SCH (08:58)
[2019-08-27] MEDS: metroNIDAZOLE 500 MG TAB PO SCH ×2 (08:59→15:07)
[2019-08-27 15:47] VITALS: BP 105/66; TEMP 98.1
--- NOTE | 2019-08-28 02:39 | DIS ---
DATE OF ADMISSION: 08/19/2019 DATE OF DISCHARGE: 08/27/2019 ADMITTING DIAGNOSIS: Small-bowel obstruction. DISCHARGE DIAGNOSIS: Ruptured appendicitis. PROCEDURES: Exploratory laparotomy and appendectomy with drain placement by Dr. Gauthier without complication. CONDITION ON DISCHARGE: Improved. HOSPITAL COURSE: The patient had above-mentioned procedure. He had wound VAC. He had drain placed. He was on broad-spectrum antibiotics. Postop course was uneventful. Slowly his ileus resolved. His diet was advanced to a liquid diet. On the day of discharge, he is doing well. He is tolerating full liquids. He is ready for discharge . His home VAC has been approved and he will have home health helping with wound VAC changes. The JAKE drain is removed. He does not need any more antibiotics. He turned down any pain medicine. He will follow up with Dr. Gauthier in 2 weeks. Job ID: [id number]
== END 2019-08-27 19:30 | disposition home health service (06) | DRG 339 ==
LOC: ERS 13:51 → SURG B 18:17
PROVIDERS: ADMIT Specialist; ATTEND Specialist
PROC: 0DTJ0ZZ Resection of Appendix, Open Approach (ICD-10-PCS; principal; 2019-08-20)
PROC: 0W9G00Z Drainage of Peritoneal Cavity with Drainage Device, Open Approach (ICD-10-PCS; 2019-08-20)
DX: K35.33 Acute appendicitis with perforation, localized peritonitis, and gangrene, with abscess (principal); K56.7 Ileus, unspecified; N17.9 Acute kidney failure, unspecified; E87.1 Hypo-osmolality and hyponatremia; K56.50 Intestinal adhesions [bands], unspecified as to partial versus complete obstruction; N18.9 Chronic kidney disease, unspecified; F17.210 Nicotine dependence, cigarettes, uncomplicated; J43.9 Emphysema, unspecified; Z79.51 Long term (current) use of inhaled steroids; K42.9 Umbilical hernia without obstruction or gangrene
CPT/HCPCS: 36415; 74018; 74019; 74022; 74177; 80048; 80053; 81003; 81015; 83690; 85025; 88304; 90471; 90662; 90670; 94640; 96374; 96375; C9113; G0008; G0009; J1100; J1170; J1650; J1885; J2001; J2270; J2310; J2405; J2543; J2704; J3010; J3480; J3490; J7620; Q9967; S0028

== ENCOUNTER 2021-02-10 08:43 | Inpatient (IN) | payer MEDICARE ==
[2021-02-09 11:16] VITALS: BMI 24.2
[2021-02-10] MEDS ORDERED: Lidocaine 1% w/Epinephrine 1:100K 20 ML VIAL ONE (08:51)
[2021-02-10] MEDS ORDERED: Bupivacaine 0.25% HCL 30 ML VIAL ONE (08:51)
[2021-02-10] MEDS ORDERED: Gabapentin 300 MG CAP ONE (09:05)
[2021-02-10] MEDS ORDERED: Acetaminophen 500 MG TAB ONE (09:07)
[2021-02-10] MEDS ORDERED: Midazolam HCl 2 mg/2 ml Vial ONE (10:01)
[2021-02-10] MEDS ORDERED: Fentanyl 250 MCG/5 ML VIAL ONE (11:06)
[2021-02-10] MEDS ORDERED: Fentanyl 100 MCG/2 ML VIAL ONE ×2 (11:14→16:44)
[2021-02-10] MEDS ORDERED: Propofol 1,000 MG/100 ML VIAL IV ONE (11:14)
[2021-02-10] MEDS ORDERED: Glycopyrrolate 0.2 MG/ML 5 ML SYRINGE ONE (11:20)
[2021-02-10] MEDS ORDERED: Rocuronium Bromide 10 MG/ML (10ML VIAL) ONE (11:20)
[2021-02-10] MEDS ORDERED: EPINEPHrine 1 MG/10 ML Abboject SYRINGE ONE (11:20)
[2021-02-10] MEDS ORDERED: PHENYLEPHRINE-NS 100 MCG/ML 10 ML SYRINGE ONE (11:20)
[2021-02-10] MEDS ORDERED: ePHEDrine 50 MG/ML VIAL ONE (11:20)
[2021-02-10] MEDS ORDERED: Lidocaine 1% PF 5 ML VIAL ONE (11:20)
[2021-02-10] MEDS ORDERED: PROPOFOL 200 MG/20 ML VIAL ONE (11:20)
[2021-02-10] MEDS ORDERED: SUGAMMADEX SODIUM 200 MG/2 ML VIAL ONE (12:19)
[2021-02-10] MEDS ORDERED: HYDROcodone/Acetaminophen 10/325 mg Tablet PO PRN (13:36)
[2021-02-10] MEDS ORDERED: Ondansetron PF 4 MG/2 ML Vial IVP PRN (13:36)
[2021-02-10] MEDS ORDERED: Morphine 4 MG/ML VIAL SLOW IVP PRN (13:36)
[2021-02-10] MEDS ORDERED: Morphine 2 MG/ML VIAL SLOW IVP PRN (13:36)
[2021-02-10] MEDS ORDERED: hydrALAZINE 20 MG/ML VIAL SLOW IVP PRN (13:36)
[2021-02-10] MEDS ORDERED: Lorazepam 2 MG/ML VIAL SLOW IVP PRN (13:36)
[2021-02-10] MEDS ORDERED: Ondansetron ODT 4 MG TAB PO PRN (13:36)
[2021-02-10] MEDS ORDERED: traMADol HCl 50 MG TAB PO PRN (13:41)
[2021-02-10] MEDS ORDERED: Acetaminophen 500 MG TAB PO PRN (13:41)
[2021-02-10] MEDS ORDERED: Gabapentin 300 MG CAP PO PRN (13:44)
[2021-02-10] MEDS ORDERED: Albumin 5% 0 ML ONE (13:55)
[2021-02-10] MEDS ORDERED: Albumin 5% 500 ML ONE (13:55)
[2021-02-10 17:54] LABS: #Eosinphils 0.1 thou/uL (0.0-0.7); #Lymphocytes 1.4 thou/uL (1.20-3.40); #Monocytes 0.9 thou/uL (0.11-0.59); #Neutrophils 9.3 thou/uL (1.40-6.50); %Basophils 0.3 % (0.0-1.0); %Lymphocytes 11.7 % (21.0-51.0); %Monocytes 7.5 % (0.0-10.0); %Neutrophils 79.5 % (42.0-75.0); Hemoglobin 12.2 g/dL (14.0-18.0); Mean Corpuscular HGB CONC 32.8 g/dL (32.0-36.0); Mean Corpuscular Hemoglobin 32.1 pg (27.0-31.0); Mean Corpuscular Volume 97.9 fL (78.0-98.0); Mean Platelet Volume 6.6 fL (7.4-10.4); Platelet Count 263 thou/uL (130-400); RBC Distribution Width 12.5 % (11.5-14.5); White Blood Cell (WBC) Count 11.7 thou/uL (4.8-10.8)
[2021-02-10 18:50] LABS: CKMB 6.8 ng/mL (0-6.6)
[2021-02-10] MEDS ORDERED: Albumin 25% 25 GM/100 ML BOT IVPB SCH (19:00)
[2021-02-10] MEDS ORDERED: Albuterol Sulfate 2.5 mg/3 ml Neb NEB PRN (19:04)
[2021-02-10] MEDS: Arformoterol 15 MCG/2 ML NEB NEB SCH (19:22)
[2021-02-10] MEDS: Sodium Chloride 0.9% 500 ML IV SCH ×2 (19:40→22:41)
[2021-02-10 20:20] LABS: #Eosinphils 0.1 thou/uL (0.0-0.7); #Lymphocytes 1.3 thou/uL (1.20-3.40); #Monocytes 0.8 thou/uL (0.11-0.59); #Neutrophils 7.9 thou/uL (1.40-6.50); %Basophils 0.3 % (0.0-1.0); %Eosinophils 1.2 % (0.0-10.0); %Lymphocytes 13.1 % (21.0-51.0); %Monocytes 7.6 % (0.0-10.0); %Neutrophils 77.9 % (42.0-75.0); Hemoglobin 11.5 g/dL (14.0-18.0); Mean Corpuscular HGB CONC 35.8 g/dL (32.0-36.0); Mean Corpuscular Volume 97.8 fL (78.0-98.0); Mean Platelet Volume 7.1 fL (7.4-10.4); Platelet Count 237 thou/uL (130-400); RBC Distribution Width 12.6 % (11.5-14.5); White Blood Cell (WBC) Count 10.2 thou/uL (4.8-10.8)
[2021-02-10] MEDS: Sodium Chloride 0.45% 1,000 ML IV SCH ×2 (20:33→22:42)
[2021-02-10] MEDS: Aspirin 81 mg Enteric Coated Tablet PO SCH (20:35)
[2021-02-10] MEDS: HYDROcodone/Acetaminophen 10/325 mg Tablet PO PRN (20:35)
[2021-02-10] MEDS: Famotidine 20 MG TAB PO SCH (20:35)
[2021-02-10] MEDS: CeleCOXIB 100 MG CAP PO SCH (21:38)
[2021-02-11] MEDS: Sodium Chloride 0.45% 1,000 ML IV SCH ×2 (03:50→11:44)
[2021-02-11 04:32] LABS: #Eosinphils 0.3 thou/uL (0.0-0.7); #Lymphocytes 1.5 thou/uL (1.20-3.40); #Monocytes 0.6 thou/uL (0.11-0.59); #Neutrophils 5.1 thou/uL (1.40-6.50); %Basophils 0.3 % (0.0-1.0); %Eosinophils 4.1 % (0.0-10.0); %Lymphocytes 20.1 % (21.0-51.0); %Monocytes 7.7 % (0.0-10.0); %Neutrophils 67.8 % (42.0-75.0); Hemoglobin 11.4 g/dL (14.0-18.0); Mean Corpuscular HGB CONC 36.9 g/dL (32.0-36.0); Mean Corpuscular Hemoglobin 36.3 pg (27.0-31.0); Mean Corpuscular Volume 98.4 fL (78.0-98.0); Mean Platelet Volume 7.1 fL (7.4-10.4); Platelet Count 231 thou/uL (130-400); RBC Distribution Width 12.6 % (11.5-14.5); Red Blood Cell (RBC) Count 3.14 mill/uL (4.70-6.10); White Blood Cell (WBC) Count 7.5 thou/uL (4.8-10.8)
[2021-02-11 04:36] LABS: Anion Gap 7 mmol/L (10-20); BUN (Urea Nitrogen) 8 mg/dL (8.4-25.7); Calc. Creatinine Clearance 116 mL/min (70-130); Calcium 8.2 mg/dL (7.8-10.44); Carbon Dioxide 27 mmol/L (23-31); Chloride 105 mmol/L (98-107); Glucose 94 mg/dL (80-115); Potassium 3.9 mmol/L (3.5-5.1); Sodium 135 mmol/L (136-145)
[2021-02-11 04:43] LABS: Critical Call Chem Troponin I RESULT DECREASING
[2021-02-11 05:00] LABS: CKMB 5.6 ng/mL (0-6.6)
[2021-02-11] MEDS: Arformoterol 15 MCG/2 ML NEB NEB SCH (07:53)
[2021-02-11] MEDS: Enoxaparin Sodium 40 MG/0.4 ML SYRINGE SC SCH (08:44)
[2021-02-11] MEDS: Famotidine 20 MG TAB PO SCH ×2 (08:44→20:21)
[2021-02-11] MEDS: Polyethylene Glycol 3350 17 GM Packet PO SCH (08:46)
[2021-02-11] MEDS: HYDROcodone/Acetaminophen 10/325 mg Tablet PO PRN ×2 (08:47→20:23)
[2021-02-11] MEDS ORDERED: Non-Formulary Item 1 EACH (Tiotropium Bromide [Spiriva] 18 MCG Cap.W.Dev) IH SCH (09:00)
[2021-02-11] MEDS ORDERED: traMADol HCl 50 MG TAB PO PRN (12:47)
[2021-02-11] MEDS: Gabapentin 300 MG CAP PO SCH ×2 (16:10→20:22)
[2021-02-11] MEDS ORDERED: Furosemide 40 MG/4 ML VIAL SLOW IVP PRN (18:19)
[2021-02-11] MEDS ORDERED: Furosemide 40 MG TAB PO PRN (18:20)
[2021-02-11] MEDS: Aspirin 81 mg Enteric Coated Tablet PO SCH (20:21)
[2021-02-11] MEDS: CeleCOXIB 100 MG CAP PO SCH (20:21)
[2021-02-12] MEDS: Arformoterol 15 MCG/2 ML NEB NEB SCH ×2 (00:38→07:42)
[2021-02-12 07:45] VITALS: TEMP 98
[2021-02-12] MEDS: Enoxaparin Sodium 40 MG/0.4 ML SYRINGE SC SCH (08:11)
[2021-02-12] MEDS: Gabapentin 300 MG CAP PO SCH ×2 (08:12→14:59)
[2021-02-12] MEDS: Famotidine 20 MG TAB PO SCH (08:12)
[2021-02-12] MEDS: Polyethylene Glycol 3350 17 GM Packet PO SCH (08:12)
[2021-02-12] MEDS ORDERED: Lisinopril 2.5 MG TAB PO SCH (09:00)
[2021-02-12] MEDS: HYDROcodone/Acetaminophen 10/325 mg Tablet PO PRN (11:05)
[2021-02-12 15:52] VITALS: BP 126/62
== END 2021-02-12 16:50 | disposition home or self-care (01) | DRG 981 ==
LOC: SDC 08:43 → IMCU/EMU 13:36 → 2NO 02-12 00:32
PROVIDERS: ADMIT Specialist; ATTEND Specialist
PROC: 0FC Hepatobiliary System and Pancreas, Extirpation (ICD-10-PCS; principal; 2021-02-10)
DX: K43.2 Incisional hernia without obstruction or gangrene (principal); T79.0XXA Air embolism (traumatic), initial encounter; I21.A1 Myocardial infarction type 2; I42.0 Dilated cardiomyopathy; E87.2 Acidosis; J44.9 Chronic obstructive pulmonary disease, unspecified; F17.210 Nicotine dependence, cigarettes, uncomplicated; K74.69 Other cirrhosis of liver; I08.1 Rheumatic disorders of both mitral and tricuspid valves; I10 Essential (primary) hypertension; I95.9 Hypotension, unspecified; R00.1 Bradycardia, unspecified; Z53.8 Procedure and treatment not carried out for other reasons; Z90.49 Acquired absence of other specified parts of digestive tract; Z79.82 Long term (current) use of aspirin; Z79.51 Long term (current) use of inhaled steroids
CPT/HCPCS: 36415; 71045; 71046; 80048; 80053; 80074; 82553; 84484; 85025; 85610; 85730; 93005; 93010; 93306; 94640; J0171; J0690; J1650; J2060; J2250; J2704; J3010; J3490; J7611; J7620; P9045; P9047; S0020